=== PATIENT | female | born 1955 | race Caucasian/White ===

== ENCOUNTER 2024-11-06 13:27 | Inpatient (IN) | payer OTHER ==
[~2024-11-06] VITALS: Ht 157.5 cm; Wt 59.0 kg
[2024-11-06 15:46] LABS: BASOPHILS % (AUTO) 0.3 % (0.0-2.0); EOSINOPHILS % (AUTO) 0.1 % (0.0-7.0); HEMOGLOBIN 11.4 g/dL (10.9-14.3); LYMPHOCYTES # (AUTO) 0.6 K/uL (0.8-4.8); LYMPHOCYTES % (AUTO) 8.7 % (20.5-51.5); MEAN CORPUSCULAR HEMOGLOBIN 30.3 uug (24.7-32.8); MEAN CORPUSCULAR HGB CONC 36 g/dL (32.3-35.6); MEAN CORPUSCULAR VOLUME 85.1 fL (75.5-95.3); MONOCYTES # (AUTO) 0.9 K/uL (0.1-1.30); MONOCYTES % (AUTO) 12.9 % (0.0-11.0); NEUTROPHILS # (AUTO) 5.4 K/uL (1.8-8.9); PLATELET COUNT (AUTO) 103 K/uL (179-408); RED BLOOD CELL COUNT(AUTO) 3.76 MIL/uL (3.63-4.92); RED CELL DISTRIBUTION WIDTH 14.1 % (12.3-17.7); WHITE BLOOD COUNT (AUTO) 6.9 K/uL (3.8-11.8)
[2024-11-06 15:47] LABS: DIFFERENTIAL COMMENT 1
[2024-11-06 15:54] LABS: CALCIUM 8.7 mg/dL (8.5-10.1); CREATININE 0.8 mg/dL (0.6-1.3); POTASSIUM 3.3 mmol/L (3.5-5.1)
[2024-11-06 16:00] LABS: ALBUMIN 3.3 g/dL (3.4-5.0); BILIRUBIN,DIRECT 0.5 mg/dL (0.0-0.2); TOTAL PROTEIN, SERUM 5.7 g/dL (6.4-8.2)
[2024-11-06] MEDS ORDERED: POTASSIUM BICARBONATE/CIT AC 25 MEQ TABLET.EFF ONE (16:15)
[2024-11-06] MEDS: POTASSIUM BICARBONATE/CIT AC 25 MEQ TABLET.EFF PO ONE (16:21)
[2024-11-06] MEDS ORDERED: SWABABLE VALVE TRANSFER SET EA MC ONE (17:03)
[2024-11-06] MEDS ORDERED: IOHEXOL 300MG/ML 100 ML INFUS..BTL ONE (17:03)
[2024-11-06] MEDS ORDERED: IV NORMAL SALINE 250 ML IV ONE (17:03)
[2024-11-06] MEDS ORDERED: AZITHROMYCIN 500MG/ D5W 250ML IVPB **ER PYXIS ONLY IV ONE (17:53)
[2024-11-06] MEDS ORDERED: CEFTRIAXONE /D5W 50ML IVPB **ER PYXIS IV ONE (17:53)
[2024-11-06] MEDS: CEFTRIAXONE 1 G in IV DEXTROSE 5% 50 ML IV ONE (18:24)
[2024-11-06] MEDS: AZITHROMYCIN IV 500 MG in IV DEXTROSE 5% 250 ML IV ONE (18:24)
[2024-11-06] MEDS ORDERED: ONDANSETRON 4 MG/2 ML VIAL IV PRN (21:45)
[2024-11-06] MEDS ORDERED: ACETAMINOPHEN 325 MG TABLET PO PRN (21:45)
[2024-11-06] MEDS ORDERED: ENOXAPARIN SODIUM 40 MG/0.4 ML DISP.SYRIN SQ ONE (23:39)
[2024-11-06] MEDS: ENOXAPARIN SODIUM 40 MG/0.4 ML DISP.SYRIN SQ SCH (23:47)
[2024-11-07 01:45] VITALS: BP 141/67; TEMP 98.3; O2SAT 95
[2024-11-07] MEDS: IV NS 1000 ML 1,000 ML IV PRN (02:26)
[2024-11-07 04:00] VITALS: BP 125/56; TEMP 98; O2SAT 97
[2024-11-07 06:49] LABS: BASOPHILS % (AUTO) 0.1 % (0.0-2.0); EOSINOPHILS % (AUTO) 0.4 % (0.0-7.0); HEMATOCRIT 29.5 % (31.2-41.9); HEMOGLOBIN 10.5 g/dL (10.9-14.3); LYMPHOCYTES # (AUTO) 0.8 K/uL (0.8-4.8); LYMPHOCYTES % (AUTO) 13.5 % (20.5-51.5); MEAN CORPUSCULAR HEMOGLOBIN 30.4 uug (24.7-32.8); MEAN CORPUSCULAR HGB CONC 36 g/dL (32.3-35.6); MONOCYTES # (AUTO) 0.8 K/uL (0.1-1.30); MONOCYTES % (AUTO) 13.9 % (0.0-11.0); NEUTROPHILS # (AUTO) 4.1 K/uL (1.8-8.9); NEUTROPHILS % (AUTO) 72.1 % (38.5-71.5); PLATELET COUNT (AUTO) 105 K/uL (179-408); RED BLOOD CELL COUNT(AUTO) 3.47 MIL/uL (3.63-4.92); RED CELL DISTRIBUTION WIDTH 14.1 % (12.3-17.7); WHITE BLOOD COUNT (AUTO) 5.7 K/uL (3.8-11.8)
[2024-11-07 06:53] LABS: DIFFERENTIAL COMMENT 1
[2024-11-07 07:00] LABS: CALCIUM 8.3 mg/dL (8.5-10.1); CREATININE 0.8 mg/dL (0.6-1.3); MAGNESIUM 2.2 mg/dL (1.8-2.4); POTASSIUM 3.5 mmol/L (3.5-5.1)
[2024-11-07 08:05] VITALS: BP 96/68; TEMP 98.2; O2SAT 95
[2024-11-07] MEDS ORDERED: FURO-152 PO (10:57)
[2024-11-07] MEDS ORDERED: LIPA1CAP15 PO (10:57)
[2024-11-07] MEDS ORDERED: PROP10TA10 PO (10:57)
[2024-11-07] MEDS ORDERED: SPIR25TA6 PO (10:57)
[2024-11-07] MEDS ORDERED: CITA40TA11 PO (10:57)
[2024-11-07] MEDS ORDERED: OMEP40CA21 PO (10:57)
[2024-11-07 11:12] VITALS: BP 113/62; TEMP 98.4; O2SAT 97
[2024-11-07 15:14] VITALS: BP 149/70; TEMP 99; O2SAT 100
[2024-11-07] MEDS: CEFTRIAXONE 1 G in IV DEXTROSE 5% 50 ML IV SCH (17:45)
[2024-11-07] MEDS: AZITHROMYCIN IV 250 MG in IV DEXTROSE 5% 250 ML IV SCH (18:32)
[2024-11-07 19:00] VITALS: BP 117/65; TEMP 99.1; O2SAT 96
[2024-11-08] VITALS: BP 116/65; TEMP 98.1; O2SAT 96
[2024-11-08 04:00] VITALS: BP 140/75; TEMP 97.7; O2SAT 96
[2024-11-08 08:20] VITALS: BP 108/53; TEMP 98.8; O2SAT 96
[2024-11-08 11:05] VITALS: BP 141/69; TEMP 97.8; O2SAT 95
[2024-11-08] MEDS ORDERED: LEVO500T90 PO (14:01)
[2024-11-08 16:25] VITALS: BP 120/61; TEMP 98.7; O2SAT 99
[2024-11-09 08:10] LABS: CARCINOEMBRYONIC AG (CEA) 2.6 ng/mL (0.0-4.7)
== END 2024-11-08 18:40 | disposition home or self-care (01) | DRG 194 ==
LOC: ER 13:27 → TELE3 11-07 00:44
PROVIDERS: ADMIT Nurse Practitioner Acute Care; ATTEND Nurse Practitioner Acute Care
PROC: 05HB33Z Insertion of Infusion Device into Right Basilic Vein, Percutaneous Approach (ICD-10-PCS; principal; 2024-11-07)
DX: J15.9 Unspecified bacterial pneumonia (principal); A04.72 Enterocolitis due to Clostridium difficile, not specified as recurrent; E44.1 Mild protein-calorie malnutrition; D80.3 Selective deficiency of immunoglobulin G [IgG] subclasses; K52.9 Noninfective gastroenteritis and colitis, unspecified; E88.09 Other disorders of plasma-protein metabolism, not elsewhere classified; Z68.23 Body mass index [BMI] 23.0-23.9, adult; K74.69 Other cirrhosis of liver; E87.6 Hypokalemia; Z87.891 Personal history of nicotine dependence; B94.2 Sequelae of viral hepatitis; R63.4 Abnormal weight loss; Z90.49 Acquired absence of other specified parts of digestive tract; D12.6 Benign neoplasm of colon, unspecified
CPT/HCPCS: 36415; 71045; 82378; 83735; 84100; 85025; 86301; 87040; A4606; A4663; G0378; J0456; J0696; J1650; J7040; J7050; Q9967